=== PATIENT | female | born 1995 | race Caucasian/White ===

== ENCOUNTER 2016-12-15 13:18 | Emergency (ER) | payer MEDICAID ==
[~2016-12-15 13:18] MED LIST: ALBU8I INH; ROBIDM5S PO; ZITH250T PO
[2016-12-15 13:27] VITALS: BP 141/70; PULSE 96; RESP 20; TEMP 99.3; O2SAT 99
[2016-12-15 14:39] LABS: BLOOD, URINE MOD (NEG); GLUCOSE,URINE NEG (NEG); KETONE, URINE NEG (NEG); NITRITE,URINE NEG (NEG); PH, URINE 6.5 (5.0-8.5)
[2016-12-15 14:42] LABS: AUTOMATED NEUTROPHIL # 7.1 TH/MM3 (1.8-7.7); BASOPHIL # 0.1 TH/MM3 (0-0.2); BASOPHIL % 0.6 % (0.0-2.0); EOSINOPHIL # 0.6 TH/MM3 (0-0.4); EOSINOPHIL % 6.2 % (0.0-4.0); HEMATOCRIT 40.3 % (35.0-46.0); HEMO FLAGS DIFF FINAL; LYMPH % 15.5 % (9.0-44.0); LYMPHOCYTE # 1.6 TH/MM3 (1.0-4.8); MEAN CELL VOLUME 90.5 FL (80.0-100.0); MEAN CORPUSCULAR HEMOGLOBIN 29.6 PG (27.0-34.0); MEAN CORPUSCULAR HGB CONC 32.7 % (32.0-36.0); NEUT % 70.7 % (16.0-70.0); PLATELET COUNT 292 TH/MM3 (150-450); RED BLOOD COUNT 4.46 MIL/MM3 (4.00-5.30); RED CELL DISTRIBUTION WIDTH 12.6 % (11.6-17.2); WHITE BLOOD COUNT 10.1 TH/MM3 (4.0-11.0)
[2016-12-15 14:57] LABS: COMMENT (UR) CULT NOT INDICATED; CULTURE IF INDICATED CULT NOT INDICATED; METHOD OF COLLECTION CLEAN CATCH; RBC, URINE 0-3 /hpf (0-3); SQUAMOUS EPITHELIAL CELL URINE 0-5 /hpf (0-5); URINE COLOR STRAW (YELLW/STRAW)
--- NOTE | 2016-12-15 15:00 | PD ---
HPI Chief Complaint: Real Estate Legal Assistant Problem/Complaint Time Seen by Provider: 14:18 Travel History International Travel<30 days: No Contact w/Intl Traveler<30days: No Traveled to known affect area: No History of Present Illness HPI This is a 21-year-old female who presents to the emergency department with vaginal bleeding that started today. She is about 7 weeks by dates. This is her first . She said she woke up this morning and she had some vaginal spotting with some blood clots and a little bit of sharp abdominal cramping. The cramping has since subsided. She doesn't feel lightheaded or dizzy. Her symptoms have been moderate. She's never had bleeding before. She' s not had an ultrasound yet in this . 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 ) ?: LMP: 10/23/2016 Past Surgical History Neurologic Surgery: Yes (SUBDURAL HEMATOMA, FRACTURED SKULL, AT 5 DAYS OLD) Other Surgery: Yes Social History Alcohol Use: No Tobacco Use: No Substance Use: No Allergies-Medications (Allergen,Severity, Reaction): Coded Allergies: amoxicillin (Unverified Allergy, Severe, Hives, 12/15/16) Reported Meds & Prescriptions Reported Meds & Active Scripts Active No Active Prescriptions or Reported Medications Review of Systems Except as stated in HPI: all other systems reviewed are Neg Physical Exam Narrative GENERAL:Well appearing, no acute distress SKIN: Focused skin assessment warm and dry. HEAD: Atraumatic. Normocephalic. EYES: Pupils equal and round. No injection or drainage. ENT: Moist mucous membranes NECK: Trachea midline. CARDIOVASCULAR: Regular rate and rhythm. No murmur appreciated. RESPIRATORY: Clear to auscultation. Breath sounds equal bilaterally. GASTROINTESTINAL: Abdomen soft, non-tender, nondistended. RANGE AIDE: Cervix is closed, dark blood clots in the vault MUSCULOSKELETAL: No obvious deformities. NEUROLOGICAL: Awake and alert. No obvious cranial nerve deficits. Moving all extremities. PSYCHIATRIC: Appropriate mood and affect; insight and judgment normal. Data Data Last Documented VS Vital Signs Date Time Temp Pulse Resp B/P (MAP) Pulse Ox O2 Delivery O2 Flow Rate FiO2 12/15/16 13:27 99.3 96 20 141/70 (93) 99 Orders Orders Ed Poc Ultrasound (12/15/16 ) Complete Blood Count With Diff (12/15/16 14:27) Beta Hcg (Quant/Titer) (12/15/16 14:27) Urinalysis - C+S If Indicated (12/15/16 14:27) Us Pelvis (Ques Preg/Ectopic) (12/15/16 ) Type And Screen (12/15/16 15:13) Labs Laboratory Tests Test 12/15/16 14:15 12/15/16 14:30 Urine Collection Type CLEAN CATCH Urine Color STRAW Urine Turbidity CLEAR Urine pH 6.5 Urine Specific [place] 1.002 Urine Protein NEG mg/dL Urine Glucose (UA) NEG mg/dL Urine Ketones NEG mg/dL Urine Occult Blood MOD Urine Nitrite NEG Urine Bilirubin NEG Urine Leukocyte Esterase NEG Urine RBC 0-3 /hpf Urine Squamous Epithelial Cells 0-5 /hpf Microscopic Urinalysis Comment CULT NOT INDICATED Urine Collection Time 14:15 White Blood Count 10.1 TH/MM3 Red Blood Count 4.46 MIL/MM3 Hemoglobin 13.2 GM/DL Hematocrit 40.3 % Mean Corpuscular Volume 90.5 FL Mean Corpuscular Hemoglobin 29.6 PG Mean Corpuscular Hemoglobin Concent 32.7 % Red Cell Distribution Width 12.6 % Platelet Count 292 TH/MM3 Mean Platelet Volume 6.9 FL Neutrophils (%) (Auto) 70.7 % Lymphocytes (%) (Auto) 15.5 % Monocytes (%) (Auto) 7.0 % Eosinophils (%) (Auto) 6.2 % Basophils (%) (Auto) 0.6 % Neutrophils # (Auto) 7.1 TH/MM3 Lymphocytes # (Auto) 1.6 TH/MM3 Monocytes # (Auto) 0.7 TH/MM3 Eosinophils # (Auto) 0.6 TH/MM3 Basophils # (Auto) 0.1 TH/MM3 CBC Comment DIFF FINAL Differential Comment Human Chorionic Gonadotropin, Quant 2821 MIU/ML [facility] Medical Decision Making Medical Screen Exam Complete: Yes Emergency Medical Condition: Yes Interpretation(s) Afebrile, mild tachycardia, mild hypertension No leukocytosis HCG is 2800 Urinalysis: Some blood Differential Diagnosis Ectopic , threatened miscarriage, incomplete miscarriage, completed miscarriage, blighted ovum Narrative Course This is a 21-year-old female who presents to the emergency department with vaginal bleeding in the setting of early . She has some blood clots in the vault. She appears stable. Vital signs are reassuring and labs are unremarkable. Transabdominal ultrasound demonstrates a gestational sac but I am unable to definitively evaluate a fetus. Pelvic ultrasound was ordered and is pending Procedures Procedure Narrative [id number] ultrasound: Gestational sac, heart rate will have to be determined by transvaginal ultrasound Scripts No Active Prescriptions or Reported Meds Shira House MD Dec 15, 2016 15:00
[2016-12-15 15:15] LABS: BETA HCG QUANT 2821 MIU/ML (0-5)
[2016-12-15 16:23] VITALS: BP 134/65; PULSE 70; RESP 18; O2SAT 96
--- NOTE | 2016-12-15 17:47 | RADRPT ---
EXAM DATE/TIME: 12/15/2016 15:45 [facility] COMPARISON: No previous studies available for comparison. INDICATIONS : Bleeding. LAB(S): Beta-hC MEDICAL HISTORY : . Seizure. Head trauma. SURGICAL HISTORY : None. ENCOUNTER: Initial ACUITY: 1 day PAIN SCORE: 0/10 LOCATION: Bilateral pelvis MEASUREMENTS: UTERUS: 10.9 x 6.7 x 6.1 cm ENDOMETRIAL STRIPE: 18 mm RIGHT OVARY: 3.4 x 1.7 x 2.6 cm LEFT OVARY: 3.0 x 1.7 x 2.2 cm FREE FLUID: No CROWN RUMP LENGTH: 0.54 cm = 6 WKS 2 DAYS FHR: not seen BPM FINDINGS: UTERUS: There is a solitary inferior gestation. A gestational sac is observed with crown-rump length of 0.42 cm which equals 6 weeks one day gestational age. Yolk sac is noted. No heart rate activity is c urrently discernible. RIGHT OVARY: Ovary contains no mass or significant cystic lesion. LEFT OVARY: Ovary contains no mass or significant cystic lesion. MISCELLANEOUS: No free fluid. CONCLUSION: 1. Solitary intrauterine gestation with age by crown-rump length of 6 weeks one day. No heart r ate activity is discernible on this exam which could relate to the early age of the gestation. I mera ot exclude demise. Cuauhtemoc Morgan Jr., MD on December 15, 2016 at 17:43 Board Certified Radiologist. This report was verified electronically.
--- NOTE | 2016-12-15 18:23 | PD ---
Physical Exam Narrative Patient was seen by ED physician and signed out to me. Data Data Last Documented VS Vital Signs Date Time Temp Pulse Resp B/P (MAP) Pulse Ox O2 Delivery O2 Flow Rate FiO2 12/15/16 16:23 70 18 134/65 (88) 96 Room Air 12/15/16 13:27 99.3 Orders Orders Ed Poc Ultrasound (12/15/16 ) Complete Blood Count With Diff (12/15/16 14:27) Beta Hcg (Quant/Titer) (12/15/16 14:27) Urinalysis - C+S If Indicated (12/15/16 14:27) Type And Screen (12/15/16 15:13) Us Pelvis (Ques Pr/Ect)W Trans (12/15/16 ) Ed Discharge Order (12/15/16 18:29) Labs Laboratory Tests Test 12/15/16 14:15 12/15/16 14:30 Urine Collection Type CLEAN CATCH Urine Color STRAW Urine Turbidity CLEAR Urine pH 6.5 Urine Specific [place] 1.002 Urine Protein NEG mg/dL Urine Glucose (UA) NEG mg/dL Urine Ketones NEG mg/dL Urine Occult Blood MOD Urine Nitrite NEG Urine Bilirubin NEG Urine Leukocyte Esterase NEG Urine RBC 0-3 /hpf Urine Squamous Epithelial Cells 0-5 /hpf Microscopic Urinalysis Comment CULT NOT INDICATED Urine Collection Time 14:15 White Blood Count 10.1 TH/MM3 Red Blood Count 4.46 MIL/MM3 Hemoglobin 13.2 GM/DL Hematocrit 40.3 % Mean Corpuscular Volume 90.5 FL Mean Corpuscular Hemoglobin 29.6 PG Mean Corpuscular Hemoglobin Concent 32.7 % Red Cell Distribution Width 12.6 % Platelet Count 292 TH/MM3 Mean Platelet Volume 6.9 FL Neutrophils (%) (Auto) 70.7 % Lymphocytes (%) (Auto) 15.5 % Monocytes (%) (Auto) 7.0 % Eosinophils (%) (Auto) 6.2 % Basophils (%) (Auto) 0.6 % Neutrophils # (Auto) 7.1 TH/MM3 Lymphocytes # (Auto) 1.6 TH/MM3 Monocytes # (Auto) 0.7 TH/MM3 Eosinophils # (Auto) 0.6 TH/MM3 Basophils # (Auto) 0.1 TH/MM3 CBC Comment DIFF FINAL Differential Comment Human Chorionic Gonadotropin, Quant 2821 MIU/ML MDM Supervised Visit with MEAGHAN: No Interpretation(s) Last Impressions Pelvis Ultrasound 12/15/16 0000 Signed Impressions: Service Date/Time: Thursday, December 15, 2016 15:45 - CONCLUSION: 1. Solitary intrauterine gestation with age by crown-rump length of 6 weeks one day. No heart rate activity is discernible on this exam which could relate to the early age of the gestation. I cannot exclude demise. Cuauhtemoc Morgan Jr., MD 1822 PM. CBC WBC 10.1. Hemoglobin 13 point hematocrit 40.3. Beta hCG 2821. UA is negative. Diagnosis Primary Impression: Vaginal bleeding in Patient Instructions: General Instructions Additional Instruction: [id number] vitamins as directed. Tylenol for pain. Return in 2 days for repeat beta hCG and possible pelvic ultrasound. Return immediately if severe pain, increased and excessive vaginal bleeding. Med/Other Pt SpecificInfo: No Meds Exist/No RX given Scripts No Active Prescriptions or Reported Meds Disposition: 01 DISCHARGE HOME Condition: Stable Kian Clark MD Dec 15, 2016 18:23
== END 2016-12-15 18:51 | disposition home or self-care (01) ==
LOC: PHED 13:18
DX: O20.9 Hemorrhage in early pregnancy, unspecified (principal); Z3A.01 Less than 8 weeks gestation of pregnancy
CPT/HCPCS: 76700; 76817; 81001; 84702; 85025; 86850; 86900; 86901